=== PATIENT | female | born 1985 | race Caucasian/White ===

== ENCOUNTER 2023-03-24 08:56 | Day surgery (SDC) | payer OTHER, SELFPAY ==
[2023-03-22 11:00] VITALS: BP 140/84; PULSE 84; RESP 16; TEMP 36.4; O2SAT 94
[2023-03-24] VITALS (20 sets, daily range): BP systolic 126–207; BP diastolic 80–137; PULSE 82–105; RESP 8–18; TEMP 36.1–37.1; O2SAT 93–98; BMI 47.9
[2023-03-24] MEDS: LACTATED RINGERS 1000 ML 1,000 ML 100 ML IV (09:00)
[2023-03-24 09:23] LABS: Ur HCG Qualitative* Negative (Negative)
[2023-03-24] MEDS: SODIUM CHLORIDE 0.9 % (FLUSH) 10 ML SYRINGE IVF (10:06)
--- NOTE | 2023-03-24 10:57 | W.ANESCHARGE ---
Anesthesia Charges Start Date/Time Anesthesia Start Date: 03/24/23 Anesthesia Start Time: 10:18 Stop Date/Time Anesthesia Stop Date: 03/24/23 Anesthesia Stop Time: 10:58
--- NOTE | 2023-03-24 11:03 | W.ANESCHARGE ---
Anesthesia Charges Start Date/Time Anesthesia Start Date: 03/24/23 Anesthesia Start Time: 10:18 Stop Date/Time Anesthesia Stop Date: 03/24/23 Anesthesia Stop Time: 10:58
--- NOTE | 2023-03-24 12:14 | W.PM.ENTPROC ---
Procedure Note Date of procedure: 03/24/23 Procedure: Preoperative diagnosis chronic tonsillitis, adenotonsillar hypertrophy, upper airway obstruction, nasal obstruction Postoperative diagnosis same Procedure adenotonsillectomy Under general endotracheal anesthesia the patient was prepped and draped in usual fashion. The McIvor mouth gag was inserted the tongue retracted forward. No submucous cleft was noted on inspection or palpation. The right and left tonsils were removed with a combination of needlepoint cautery, bipolar cautery and suction cautery. Meticulous hemostasis was achieved. The adenoid pad was visualized with a laryngeal mirror and was moderately enlarged. It was and removed with suction cautery. The patient was extubated in the operating room taken recovery in satisfactory condition. Blood loss was less than 10 mL. Surgeon: Chris Joe MD
[2023-03-24] MEDS: ACETAMINOPHEN 160 MG/5 ML CUP 320 MG PO ×2 (12:36→16:55)
[2023-03-24] MEDS: LACTATED RINGERS 1000 ML 1,000 ML 35 ML IV (12:36)
[2023-03-24] MEDS: hydrOXYzine pamoate 25 MG CAPSULE PO (15:22)
[2023-03-24] MEDS: OXYCODONE 1 MG/ML ORAL SOLN 5 MG PO (16:06)
--- NOTE | 2023-03-24 17:21 | PC.NURSE ---
End of Shift: Pt arrived to Med Surg unit post tonsillectomy. Remained AO, alert and cooperative throughout shift. Reported pain between 5-8/10 in throat and headache. Pain controlled with PO tylenol and oxycodone. Pt tolerating PO fluids, popsicles and ice chips well, dinner ordered, IV fluids stopped. Pt up independently, steady gait. Voids independently with hx of straight cathing self. No BM this shift, reports last BM this AM. Father at bedside upon arrival, left shortly after. Plan to d/c tomorrow.
[2023-03-24] MEDS: OXYCODONE 5 MG TABLET PO (20:28)
[2023-03-24] MEDS: IBUPROFEN 100 MG/5 ML SUSP 400 MG PO (21:16)
[2023-03-24] MEDS: HYDROmorphone 2 MG TABLET PO ×2 (22:01→22:49)
[2023-03-24] MEDS: dexAMETHasone 4 MG/ML VIAL 8 MG IV (22:02)
[2023-03-25] MEDS: HYDROmorphone 2 MG TABLET PO ×2 (02:36→06:58)
[2023-03-25 03:00] VITALS: BP 139/84; PULSE 88; RESP 15; TEMP 36.1; O2SAT 92
--- NOTE | 2023-03-25 05:43 | PC.NURSE ---
End of shift [id number]: patient reporting pain 9/10 after oxycodone use, states the medication makes her sleepy but is not helping with the pain. Call placed to surgeon and new orders received. At 2124 patient continues to report pain 8.5-9/10 to throat, call placed to surgeon and new order for dilaudid. Patient to utilize diluadid to get pain controlled and then will need to be switched to oxycodone for discharge. Ice pack applied to throat. Tolerating CPAP well.
[2023-03-25] MEDS: IBUPROFEN 100 MG/5 ML SUSP 400 MG PO ×2 (06:58→13:35)
[2023-03-25 09:50] VITALS: BP 130/78; PULSE 94; RESP 16; TEMP 37; O2SAT 95
[2023-03-25] MEDS: OXYCODONE 5 MG TABLET PO (11:22)
== END 2023-03-25 14:52 | disposition home or self-care (01) ==
LOC: OR 08:57 → MEDSURG 08:59
PROVIDERS: PCP Physician Assistant Medical; Visit Provider Otolaryngology
PROC: (CPT 42821; principal; 2023-03-24 10:15)
DX: J35.01 Chronic tonsillitis (principal); J35.3 Hypertrophy of tonsils with hypertrophy of adenoids
CPT/HCPCS: 42821; 170; 81025; 88304; A9270; J0330; J1100; J2250; J2704; J3010; J7120

== ENCOUNTER 2023-03-29 17:45 | Emergency (ER) | payer OTHER, SELFPAY ==
[2023-03-29] VITALS (7 sets, daily range): BP systolic 129–165; BP diastolic 78–98; PULSE 76–80; RESP 18–20; TEMP 36.9; O2SAT 95–98; BMI 47.9
[2023-03-29] MEDS: 0.9 % SODIUM CHLORIDE 1000 ml 1,000 ML IV (20:19)
[2023-03-29] MEDS: MORPHINE 4 MG/ML INJ IVP (20:19)
[2023-03-29] MEDS: dexAMETHasone 4 MG TABLET 8 MG PO (20:26)
--- NOTE | 2023-03-29 20:44 | ED_ITS ---
HPI - General Adult General Date Seen: 03/29/23 Chief complaint: Dizziness/Vertigo Stated complaint: Dehydrated after tonsil surgery, dizzy Time Seen by Provider: 03/29/23 19:12 Source: patient Mode of arrival: ambulatory Limitations: no limitations History of Present Illness HPI narrative: Patient is a 37-year-old female presenting to the emergency department for throat pain 6 days after she had tonsillectomy with Dr. Sewell. She states they recently switched her from oxycodone to Dilaudid without improvement in the pain control. She tried about today is still having pain. She has not been eating or drinking much due to the pain. She called triage nurse for the ENT office and was recommended to come to the emergency department for fluids for possible dehydration and for pain control. She states previously in her throat felt the past after she had steroids postprocedure. Denies fevers, chills, shortness of breath, chest pain, abdominal pain, headache, vision changes. Related Data Previous Rx's Medication Instructions Recorded fluoxetine 40 mg capsule 40 mg PO QDAY #90 caps 06/17/22 ketoconazole 2 % topical cream 1 applic topical QDAY 6 weeks #60 02/28/23 grams ondansetron 4 mg disintegrating 4 mg PO Q8H #10 tabs 03/24/23 tablet oxycodone 5 mg/5 mL oral solution 5 mg (5 mL) PO Q4-6H PRN pain #200 03/24/23 mL tirzepatide 2.5 mg/0.5 mL 2.5 mg (0.5 mL) subcut QWEEK 4 03/24/23 subcutaneous pen injector weeks #2 mL (Mounjaro) tirzepatide 5 mg/0.5 mL 5 mg (0.5 mL) subcut QWEEK 4 weeks 03/24/23 subcutaneous pen injector #2 mL (Mounjaro) tirzepatide 7.5 mg/0.5 mL 7.5 mg (0.5 mL) subcut QWEEK 4 03/24/23 subcutaneous pen injector weeks #2 mL (Mounjaro) hydromorphone 2 mg tablet 2 mg PO Q4-6H PRN pain #40 tabs 03/28/23 (Dilaudid) dexamethasone 4 mg tablet 8 mg (2 x 4 mg) PO DAILY #6 tabs 03/29/23 Allergies Allergy/AdvReac Type Severity Reaction Status Date / Time clavulanic acid AdvReac Gastrointestinal Verified 03/24/23 09:01 Upset Review of Systems Status of ROS: Reports: 10 or more systems reviewed and unremarkable except as noted in History and below [facility] Medical History Tonsillitis ?J03.90 - Acute tonsillitis, unspecified (ICD-10) Pre-syncope ?R55 - Syncope and collapse (ICD-10) Intermittent palpitations ?R00.2 - Palpitations (ICD-10) Dog bite (01/14/14) ?W54.0XXA - Bitten by dog, initial encounter (ICD-10) Surgical History History of surgery ?Z98.890 - Other specified postprocedural states (ICD-10) History of wisdom tooth extraction ?K08.409 - Partial loss of teeth, unspecified cause, unspecified class (ICD- 10) History of lumbar laminectomy ?Z98.890 - Other specified postprocedural states (ICD-10) Family History Father Atrial fibrillation Other Factor V Leiden mutation Stroke Social History Narrative: does not use illicit drugs nonsmoker rarely consumes alcohol uses oral contraceptives as primary control method What is your current living situation?: I presently have a place to live Problems where you live: no known problems In the past 12 months, utilities in danger of being shut off: no In past 12 months, lack of transportation kept you from medical appts, meetings, work, or getting things needed for daily living: no In the past 12 mos, have been you worried that your food would run out before you had money to buy more?: never true In the past 12 mos, the food you bought just didn't last and you didn't have money to buy more?: never true Highest level of school completed/degree received: some college, no degree Smoking Status: Never smoker Do you use any of these nicotine containing products: None Second hand tobacco smoke exposure: No How often do you have a drink containing alcohol: 2-4 times a month Alcohol type: beer, wine and hard liquor How many standard drinks containing alcohol do you have on a typical day: 1 or 2 How often do you have six or more drinks on one occasion: Less than monthly AUDIT-C Alcohol total score: 3 Non-prescribed substance use: denies use Caffeine: Yes (Daily) How often does anyone, including family, friends and others, physically hurt you : never How often does anyone, including family, friends and others, insult or talk down to you: never How often does anyone, including family, friends and others, threaten you with harm: never How often does anyone, including family, friends and others, scream or curse at you: never Little interest or pleasure in doing things: not at all Feeling down, depressed, or hopeless: not at all service: No Exam Narrative: Exam Narrative: Const: Well-nourished, Well-developed, in mild distress Eyes: PERRL, no conjunctival injection, and symmetrical lids ENMT: Atraumatic external nose and ears. Moist mucous membranes. Uvula midline, erythematous oropharynx, tonsils not seen Neck: Symmetric, trachea midline, No thyromegaly. CVS: RRR, No murmurs or gallops. Peripheral pulses 2+ and equal in all extremities RESP: Unlabored respiratory effort. Clear to auscultation bilaterally. GI: Nontender/Nondistended, No rebound or guarding. MSK:Extremities w/o deformity, Normal Active ROM Skin: Warm, Dry. No rashes or lesions. Neuro: Normal Muscle tone, No focal neurological deficits. Psych: Awake, Alert, & Oriented x3. Appropriate mood and affect. Const: Vital Signs, click to edit/add: Vital Signs - 24 hr 03/29/23 17:52 03/29/23 19:01 03/29/23 19:05 Temperature 98.4 F Pulse Rate [Right Pulse Oximeter] 80 76 Respiratory Rate 18 20 Blood Pressure [Ri ght Upper Arm] 165/98 H 139/84 Pulse Oximetry 97 98 Oxygen Delivery Me thod Room Air Room Air 03/29/23 20:00 Temperature Pulse Rate [Right Pulse Oximeter] Respiratory Rate Blood Pressure [Ri ght Upper Arm] Pulse Oximetry 98 Oxygen Delivery Me thod Course Vital Signs Vital signs: Initial Vital Signs Temperature 98.4 F 03/29/23 17:52 Temperature Source Temporal Artery Scan 03/29/23 17:52 Pulse Rate 80 03/29/23 17:52 Respiratory Rate 18 03/29/23 17:52 Blood Pressure 165/98 H 03/29/23 17:52 Blood Pressure Mean 120 H 03/29/23 17:52 Blood Pressure Position Sitting 03/29/23 17:52 Pulse Oximetry 97 03/29/23 17:52 Oxygen Delivery Method Room Air 03/29/23 17:52 Vital Signs Temperature 98.4 F 03/29/23 17:52 Pulse Rate 80 03/29/23 17:52 Respiratory Rate 18 03/29/23 17:52 Blood Pressure 165/98 H 03/29/23 17:52 Pulse Oximetry 97 03/29/23 17:52 Oxygen Delivery Method Room Air 03/29/23 17:52 Temperature 98.4 F 03/29/23 17:52 Pulse Rate 76 03/29/23 19:05 Respiratory Rate 20 03/29/23 19:05 Blood Pressure 139/84 03/29/23 19:01 Pulse Oximetry 98 03/29/23 20:00 Oxygen Delivery Method Room Air 03/29/23 19:05 Medical Decision Making MDM Narrative Medical decision making narrative: Patient is a 37-year-old female presenting to emergency department for postop pain status post tonsillectomy 6 days prior. She is feeling dehydrated because the pain is not adequately controlled right now she is not eating or drinking much. She states steroids seem to help a lot with the current Dilaudid is not helping. I gave the patient dose of Decadron and a dose of morphine. She states she is feeling much better now. She also got a L of fluids. I spoke to Dr. Sewell and he is agreeable with the plan to give her a few days worth of steroids to help with the swelling and she we can increase her pain medication if I considered it necessary. He states she can follow-up with his office tomorrow if symptoms are still bad. He also states days 6 through 8 post surgery gait is usually the worse for this is consistent with what would be expected. Patient is feeling much better after the medications so she will be discharged. She states she has a lot of Dilaudid pills already and is not needi ng another prescription. I explained to her how to increase the medication as needed for pain and was the most she can take. She is agreeable to this plan will be discharged home. Discharge Plan Discharge Clinical Impression: Post-op pain Patient Disposition: Home, Self-Care Condition: Improved Instructions: Opioid Safety (ED) Additional Instructions: Take 8 mg of Decadron daily for the next 3 days. Use your Dilaudid at 2 mg every 4-6 hours as needed for pain. If that does not help the go up to 4 mg hurt does but should not exceed more than 12 mg in a single day. Follow-up with Dr. Sewell if you continue to have pain. Symptoms usually worse on day 6 through 8 postsurgery Prescriptions: New dexamethasone 4 mg tablet 8 mg PO DAILY Qty: 6 0RF No Action fluoxetine 40 mg capsule 40 mg PO QDAY Qty: 90 3RF ketoconazole 2 % cream 1 applic topical QDAY 42 Days Qty: 60 1RF oxycodone 5 mg/5 mL solution 5 mg PO Q4-6H PRN (Reason: pain) Qty: 200 0RF ondansetron 4 mg tablet,disintegrating 4 mg PO Q8H Qty: 10 1RF Mounjaro 2.5 mg/0.5 mL pen injector 2.5 mg subcut QWEEK 28 Days Qty: 2 0RF Rx Instructions: Inject weekly for weeks 1 to 4 Mounjaro 5 mg/0.5 mL pen injector 5 mg subcut QWEEK 28 Days Qty: 2 0RF Rx Instructions: Inject once weekly for weeks 5 to 8 Mounjaro 7.5 mg/0.5 mL pen injector 7.5 mg subcut QWEEK 28 Days Qty: 2 0RF Rx Instructions: Inject weekly for weeks 9 to 12 hydromorphone [Dilaudid] 2 mg tablet 2 mg PO Q4-6H PRN (Reason: pain) Qty: 40 0RF Follow Up/Referrals: Sheri Valderrama PA-C [Primary Care Provider] - Stand Alone Forms: [facility] Info Instructions
== END 2023-03-29 21:28 | disposition home or self-care (01) ==
PROVIDERS: Emergency Provider Student in an Organized Health Care Education/Training Program; PCP Physician Assistant Medical
DX: G89.18 Other acute postprocedural pain (principal)
CPT/HCPCS: 94761; 96361; 96374; 99283; 99284; A9270; J2270; J7030

== ENCOUNTER 2023-10-30 13:25 | Outpatient (CLI) | payer OTHER, SELFPAY ==
--- OUTSIDE RECORDS SUMMARY | 2023-10-30 13:29 | XMS_ITS | Referral Summary ---
Author Name Unknown Organization [facility] Address [address] [place] [address] Care Team Providers Care Dope Heater Name Role Phone Elsewhere, Pcp Primary Care Provider Unavailabl e Source Comments Patient records contain information from all sites at [facility]. For routine questions regarding patient records, call [phone] during business hours, M-F 8:00 AM - 5:00 PM Central Time. Record requests for emergency care only can be directed to [phone] at any time.[facility] Allergies Active Allergy Reactions Criticality Noted Date Comments Amoxicillin-Pot Clavulanate Nausea And Vomiting,Diarrhea 12/26/2014 Severe diarrhea with augmentin Clavulanic Acid Diarrhea 10/01/2015 Hydrocodone Nausea And Vomiting 10/01/2015 Hydrocodone-Acetaminop hen Nausea And Vomiting 12/26/2014 Medications Medication Sig Dispensed Refills Start Date End Date Status semaglutide (Wegovy) 1.7 mg/0.75 mL pen injector injection Inject under the skin. 06/08/2023 Active FLUoxetine (PROzac) 40 mg capsule Take 40 mg by mouth at bedtime. 09/21/2022 Active azithromycin (ZITHROMAX) 250 mg tablet 500 mg on day 1, followed by 250 mg once daily for 4 days. 6 tablet 07/18/2023 Active etodolac (LODINE) 300 mg capsule Take 1 capsule (300 mg total) by mouth 2 (two) times a day. 10 capsule 07/18/2023 Active Active Problems Problem Noted Date Diagnosed Date Stress 05/11/2018 Neurogenic Bladder 02/23/2018 Chronic Pain Syndrome 02/23/2018 Radiculopathy Lumbar 02/23/2018 Incontinence Fecal 02/23/2018 Body Mass Index 40.0 To 44.9 Adult 10/02/2015 Social History Tobacco Use Types Packs/Day Years Used Date Smoking Tobacco: Never Smokeless Tobacco: Never Tobacco Cessation:Counseling Given: Not Answered Alcohol Use Standard Drinks/Week Comments Yes 0 (1 standard drink = 0.6 oz pur e alcohol) Minimal PHQ-2 Answer Date Recorded PHQ-2 Score 2 12/21/2018 Nutrition Answer Date Recorded Nutrition: EVOO Fat Source Unknown 09/14 Nutrition: Servings of Fruits/Vegetables per Day Not on file 09/14/2020 Dental Answer Date Recorded Dental: Regular Dentist Unknown 09/16/19 21 Sex and Gender Information Value Date Recorded Sex Assigned at Female 02/23/2018 8:06 AM CDT Gender Identity Female 02/23/2018 8:06 AM CDT Sexual Orientation Straight 02/23/2018 8: 06 AM CDT Last Filed Vital Signs Vital Sign Reading Time Taken Comments Blood Pressure 128/88 07/18/2023 9:52 PM [facility] Pulse 76 07/18/2023 9:52 PM [facility] Temperature 36.9 ??C (98.4 ??F) 07/18/2023 9:52 PM MS T Respiratory Rate 16 07/18/2023 9:52 PM [facility] Oxygen Saturation 95% 07/18/2023 9:52 PM [facility] Inhaled Oxygen Concentration - - Weight 131 kg (288 lb 12.8 oz) 07/18/2023 7:24 P M [facility] Height 170.2 cm (5' 7) 07/18/2023 7:24 PM [facility] Body Mass Index 45.23 07/18/2023 7:24 PM [facility] Plan of Treatment Not on file Medical Devices Implanted Type Area Wood Getter Device Identifier Shelf Expiration Date Model / Serial / Lot Hardware E.G. Pins/Screws/Ro ds Hardware e.g. pins/screws/r ods Ankle Care Teams Dope Heater Relationship Specialty Start Date End Date Elsewhere, Pcp PCP - General Internal Medicine 07/18/23
--- OUTSIDE RECORDS SUMMARY | 2023-10-30 13:29 | XMS_ITS | Clinical Summary ---
Author Name Unknown Organization [facility] Address [address] [place] [id number] Care Team Providers Care Diesel Maintenance Electrician Name Role Phone Missy Grossman MD Unavailable [phone] [facility] Primary Care Provider Allergies Active Allergy Reactions Criticality Noted Date Comments Amoxicillin-Pot Clavulanate Diarrhea,Nausea and Vomiting 12/26/2014 Severe diarrhea with augmentin Clavulanic Acid Diarrhea 07/07/2015 Hydrocodone Nausea and Vomiting 10/01/2015 Hydrocodone-Acetaminop hen Nausea and Vomiting 12/26/2014 Medications Medication Sig Dispensed Refills Start Date End Date Status FLUoxetine (PROZAC) 20 MG capsule Take 20 mg by mouth At Bedtime Active Ascorbic Acid (VITAMIN C) 500 MG CHEW Take 1 tablet by mouth daily Active Vitamin D, Cholecalciferol, 25 MCG (1000 UT) TABS Take 1 tablet by mouth daily Active multivitamin, therapeutic (THERA-VIT) TABS tablet Take 1 tablet by mouth daily Active metroNIDAZOLE (FLAGYL) 500 MG tablet 06/17/2021 Active norgestim-eth estrad triphasic (ORTHO TRI-CYCLEN) 0.18/0.215/0.25 MG-35 MCG tablet Take 1 tablet by mouth daily Active carBAMazepine (CARBATROL) 200 MG 12 hr capsuleIndications: Trigeminal neuralgia Take 1 capsule (200 mg) by mouth 2 times daily 14 capsule 1 06/27/2021 Active methylPREDNISolone (MEDROL DOSEPAK) 4 MG tablet therapy pack Follow Package Directions 21 tablet 12/28/2022 Active Active Problems Problem Noted Date Diagnosed Date Acute respiratory failure with hypoxia 0 2019 novel coronavirus disease (COVID-19) 2019 CARDIOVASCULAR SCREENING; LDL GOAL LESS THAN 160 05/09/2010 Papanicolaou smear of cervix with atypical squamous cells of undetermined significance (ASC-US) 02/28/2006 Other abnormal Papanicolaou smear of cervix and cervical HPV(795.09) 02/28/2006 Immunizations Name Administration Dates Next Due LOUPF 7+ (Teniva) 11/03/2003 Family History Medical History Relation Comments C.A.D. Father Heart Disease Father bypass Relation Status Comments Father Social History Tobacco Use Types Packs/Day Years Used Date Smoking Tobacco: Never Smokeless Tobacco: Never Alcohol Use Standard Drinks/Week Comments Yes 0 (1 standard drink = 0.6 oz pur e alcohol) occasionally Adolescent Education Answer Date Record ed Getting School Help Needed Not on file 04/02 Sex and Gender Information Value Date Recorded Sex Assigned at Not on file Gender Identity Not on file Sexual Orientation Not on file Last Filed Vital Signs Vital Sign Reading Time Taken Comments Blood Pressure 135/72 12/28/2022 3:24 PM CDT Pulse 80 12/28/2022 3:24 PM CDT Temperature 37.1 ??C (98.8 ??F) 12/28/2022 1 1:27 AM CDT Respiratory Rate 18 12/28/2022 1:23 PM CDT Oxygen Saturation 100% 12/28/2022 3:24 PM CDT Inhaled Oxygen Concentration - - Weight 134.7 kg (296 lb 15.4 oz) 09/18/2022 1:53 PM CDT Height 170.2 cm (5' 7) 05/26/2020 9:40 PM TECHNOLOGY COORDINATOR Body Mass Index 46.51 05/26/2020 9:40 PM TECHNOLOGY COORDINATOR Plan of Treatment Health Maintenance Due Date Last Done Comments ADVANCE CARE PLANNING 1985 ANNUAL REVIEW OF HM ORDERS 1985 HIV SCREENING 2000 HEPATITIS B IMMUNIZATION (4 of 4 - 4-dose series) 05/22/2001 03/27/2001, 03/27/2001, 01/26/2001, Additional history exists HEPATITIS C SCREENING 10/28/2003 YEARLY PREVENTIVE VISIT 02/21/2006 02/21/2005 COVID-19 Vaccine ( season) 2023 12/21/2021 INFLUENZA VACCINE (#1) 2023 , 05/20/2019, 05/20/2019, Additional history exists PHQ-2 (once per calendar year) 2023 DTAP/TDAP/TD IMMUNIZATION (4 - Td or Tdap) 12/24/2023 12/23/2013, 11/03/2003, 11/03/2003, Additional history exists PAP 05/28/2024 05/28/2021, 05/10, 03/18/2019, Additional history exists GLUCOSE 12/28/2025 12/28/2022, 09/07, 05/30/2020, Additional history exists HPV IMMUNIZATION Aged Out No longer e ligible based on patient's age to complete this topic IPV IMMUNIZATION Aged Out No longer e ligible based on patient's age to complete this topic MENINGITIS IMMUNIZATION Aged Out No l onger eligible based on patient's age to complete this topic Pneumococcal Vaccine: Pediatrics (0 to 5 Years) and At-Risk Patients (6 to 64 Years) Aged Out No longer eligible based on patient's age to complete this topic RSV MONOCLONAL ANTIBODY Aged Out No l onger eligible based on patient's age to complete this topic Procedures Procedure Name Priority Date/Time Associated Diagnosis Comments BASIC METABOLIC PANEL STAT 12/28/2022 1:31 PM CDT HCL PAP SMEAR Routine 12/02/1998 1:18 PM CDT Gynecologic Examination from Last 3 Months or Most Recently Relevant to Health Maintenance Results * (ABNORMAL) Basic metabolic panel (12/28/2022 1:31 PM CDT) Sodium 145 136 - 145 mmol/L 12/28/2022 2:34 PM CDT [facility] Potassium 4.8 3.4 - 5.3 mmol/L 12/28/2022 2:34 PM CDT [facility] Chloride 93(L) 98 - 107 mmol/L 12/28/2022 2:34 PM CDT [facility] Carbon Dioxide (CO2) 23 22 - 29 mmol/L 12/28/2022 2:34 PM CDT [facility] Anion Gap 29(H) 7 - 15 mmol/L 12/28/2022 2:34 PM CDT [facility] Urea Nitrogen 11.9 6.0 - 20.0 mg/dL 12/28/2022 2:34 PM CDT [facility] Creatinine 0.65 0.51 - 0.95 mg/dL 12/28/2022 2:34 PM CDT [facility] Calcium 8.9 8.6 - 10.0 mg/dL 12/28/2022 2:34 PM CDT [facility] Glucose 102(H) 70 - 99 mg/dL 12/28/2022 2:34 PM CDT [facility] GFR Estimate >90 >60 mL/min/1.7 3m2 12/28/2022 2:34 PM CDT [facility] Blood BLOOD SPECIMEN / Unknown Venipuncture / Unknown 12/28/2022 1:31 PM CDT 12/28/2022 1:38 PM CDT Narrative [facility] - 12/28/2022 2:34 PM CDT Rerun acceptable Vinay Ferrari MD LAB - BLOOD ORD ERABLES LABORATORY [facility] Acute [facility] Lab [address] Lab (1st floor, no room number) [place] [address], [facility] [phone] * PAP SMEAR (12/02/1998 1:18 PM CDT) Unlabelled DNR [facility] Biopsy Sent DNR [facility] Source VAG,CERV,E NDOCERV [facility] LMP POST [facility] PARA 3 [facility] 2 [facility] Clinical History DNR [facility] Therapy DNR [facility] Last Pap Diagnosis WITHIN NORMAL LIMITS [facility] PAP Date [id number] [facility] Specimen # DNR [facility] Tissue DNR [facility] Tissue Date DNR [facility] Statement of Adequacy [facility] Comment: SATISFACTORY FOR INTERPRETATION POST MENOPAUSAL PATIENT. ??NO ENDOCERVICAL CELLS SEEN. General Categorization DNR [facility] Descriptive Diagnosis [facility] Comment: WITHIN NORMAL LIMITS ATROPHIC CELL PATTERN Recommendations DNR [facility] DNR 114,,,,,, [facility] DNR DNR [facility] DNR DNR [facility] DNR DNR [facility] . [facility] Comment: ?PAP SMEARS ARE SUBJECT TO BOTH FALSE NEGATIVE AND FALSE ? POSITIVE RESULTS EVIDENCED BY DATA PUBLISHED IN THE ? MEDICAL LITERATURE. ??YOUR PATIENT'S RESULT SHOULD BE ? INTERPRETED IN THIS CONTEXT, TOGETHER WITH THE PATIENT'S ? HISTORY AND CLINICAL FINDINGS. TESTING LOCATION ? THIS TEST WAS PERFORMED AT [facility] ? [address]. [address] ? PHONE NUMBERS FOR CYTOLOGY INQUIRES, INCLUDING SLIDE REQUESTS ? EXT. [id number] ?? EXT. [id number] 11/30/1998 Ayala Kapoor MD LABORATORY [facility] from Last 3 Months or Most Recently Relevant to Health Maintenance Advance Directives For more information, please contact: [phone] * Full Code (Latest Code Status on File) Date Activated Date Inactivated Comments 06/01/2020 11:26 AM 09/18/2022 1:42 PM Question Answer Comments Code status determined by: Discussion with patie nt/ legal decision maker * Full Code Date Activated Date Inactivated Comments 05/26/2020 9:40 PM 06/01/2020 11:26 AM All basic and advanced life-sustaining interventions are performed as appropriate Question Answer Comments Code status determined by: Discussion with patie nt/ legal decision maker Care Teams Diesel Maintenance Electrician Relationship Specialty Start Date End Date [facility], [address] [address] PCP - General 01/10/14 Missy Grossman MD [address] [place], [place] [address], [place] [address] Referring Physician Neurological Surgery 11/18/13
--- OUTSIDE RECORDS SUMMARY | 2023-10-30 13:29 | XMS_ITS | Clinical Summary ---
Author Name Unknown Organization [facility] [facility] Address [place], [place] [address] Care Team Providers Care Cooler Conveyor Loader Name Role Phone Sheri Valderrama PA-C Primary Care Provider [phone] Allergies Active Allergy Reactions Criticality Noted Date Comments Amoxicillin-Pot Clavulanate Diarrhea,Nausea And Vomiting 12/26/2014 Severe diarrhea with augmentin Clavulanic Acid Diarrhea 07/07/2015 Hydrocodone-Acetaminop hen Nausea And Vomiting 12/26/2014 Medications Medication Sig Dispensed Refills Start Date End Date Status FLUoxetine (PROZAC) 40 mg capsule Take 40 mg by mouth once daily. 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 Tethered cord syndrome 01/01/2015 Social History Tobacco Use Types Packs/Day Years Used Date Smoking Tobacco: Never Alcohol Use Standard Drinks/Week Comments Yes 0 (1 standard drink = 0.6 oz pur e alcohol) rare Social Connections Answer Date Recorded Frequency of Communication with Friends and Fami ly Not on file 07/10/2021 Financial Resource Strain Answer Date R ecorded Difficulty of Paying Living Expenses Not on file 07/10/2021 Difficulty of Paying Living Expenses Not on file 07/10/2021 Sex and Gender Information Value Date Recorded Sex Assigned at Not on file Gender Identity Not on file Sexual Orientation Not on file Obstetrics History Last Filed Vital Signs Vital Sign Reading Time Taken Comments Blood Pressure 144/108 09/27/2022 6:52 PM CDT Pulse 96 09/27/2022 6:52 PM CDT Temperature 36.9 ??C (98.4 ??F) 09/27/2022 6:52 PM CD T Respiratory Rate 18 09/27/2022 6:52 PM CDT Oxygen Saturation 97% 09/27/2022 6:52 PM CDT Inhaled Oxygen Concentration - - Weight 131.5 kg (290 lb) 09/27/2022 6:52 PM CDT Height 170.2 cm (5' 7) 09/27/2022 6:52 PM CDT Body Mass Index 45.42 09/27/2022 6:52 PM CDT Plan of Treatment Health Maintenance Due Date Last Done Comments Tdap 1996 HIV for age 15-65 2000 BMI (ht and wt on same day) for age 18+ 10/28/2003 Hepatitis C screening for age 18-79 10/28/2003 Tetanus booster 2005 Depression screening for age 12+ 09/27/2016 09/28/2015 COVID-19 vaccine series ( season) 2023 12/21/2021 Influenza for age 9-49 03/10/2024 Pap test for age 21-65 05/28/2024 , 05/28/2021, 03/18/2019, Additional history exists Pneumococcal series for age 6-64 Aged Out No longer eligible based on patient's age to complete this topic Procedures Procedure Name Priority Date/Time Associated Diagnosis Comments HPV THIN PREP Routine 05/28/2021 2:00 PM LATHING SUPERVISOR from Last 3 Months or Most Recently Relevant to Health Maintenance Results * HPV HIGH RISK (05/28/2021 2:00 PM LATHING SUPERVISOR) TYPE 16 Negative Negative 06/02/2021 2:12 PM LATHING SUPERVISOR [facility] TYPE 18 Negative Negative 06/02/2021 2:12 PM LATHING SUPERVISOR [facility] TR[facility] OTHER HIGH RISK TYPES Negative Negative 06/02/2021 2:12 PM LATHING SUPERVISOR [facility] TR[facility] Other (Cervical/Vagina l) 05/28/2021 2:00 PM LATHING SUPERVISOR 06/01/2021 8:27 AM LATHING SUPERVISOR Narrative [facility] - 06/02/2021 2:12 PM LATHING SUPERVISOR HPV types 16, 18, 31, 33, 35, 39, 45, 51, 52, 56, 58, 59, 66 and 68 DNA were undetectable or below the pre-set threshold. Methodology: [employer] 4800 HPV Test October Sharri BROWN MICROBI[employer] [facility] [address] [place] [address], from Last 3 Months or Most Recently Relevant to Health Maintenance Advance Directives * Full Code (Latest Code Status on File) Date Activated Date Inactivated Comments 07/08/2015 7:34 PM 07/09/2015 5:18 PM * Full Code Date Activated Date Inactivated Comments 07/08/2015 11:52 AM 07/08/2015 7:34 PM * Full Code Date Activated Date Inactivated Comments 12/28/2014 10:00 AM 01/01/2015 12:43 PM * Full Code Date Activated Date Inactivated Comments 12/26/2014 6:51 AM 12/26/2014 3:11 PM Care Teams Cooler Conveyor Loader Relationship Specialty Start Date End Date Sheri Valderrama PA-C [address] [place] [address] PCP - General Physician Restaurant Management Internship 06/30/20
--- OUTSIDE RECORDS SUMMARY | 2023-10-30 13:29 | XMS_ITS | Referral Summary ---
Author Name Unknown Organization [facility] Address [address] [place] [address] Care Team Providers Care Scallop Cutter Machine Name Role Phone Missy Grossman MD Unavailable [facility], [facility] Primary Care Provider Allergies Active Allergy Reactions [...] Dates Next Due LOUPF 7+ (Teniva) 11/03/2003 Social History Tobacco Use Types Packs/Day Years [...] 170.2 cm (5' 7) 05/26/2020 9:40 PM RETORT ENGINEER Body Mass Index 46.51 05/26/2020 9:40 PM RETORT ENGINEER Plan of Treatment Not on file Procedures Procedure Name Priority Date/Time Associated Diagnosis [...] MD LAB - BLOOD ORD ERABLES LABORATORY [facility] [address] Lab (1st floor, no room number) [place] [address], [facility] [phone] * PAP SMEAR (12/02/1998 1:18 PM CDT) Unlabelled R [facility] Biopsy Sent [facility] Source VAG,CERV,E NDOCERV [facility] LMP POST [facility] PARA 3 [facility] 2 [facility] Clinical History DNR [facility] Last Pap Diagnosis WITHIN NORMAL LIMITS [facility] PAP Date [id number] [facility] Specimen # DNR [facility] Tissue DNR [facility] Tissue [facility] Statement of Adequacy [facility] Comment: SATISFACTORY FOR INTERPRETATION POST MENOPAUSAL PATIENT. ??NO ENDOCERVICAL CELLS SEEN. General Categorization [facility] Descriptive Diagnosis [facility] Comment: WITHIN NORMAL LIMITS ATROPHIC CELL PATTERN Recommendations DNR QUES T PENCIL BLUFF DNR 114,,,,,, [facility] DNR DNR [facility] DNR DNR [facility] DNR DNR [facility] . [facility] Comment: ?PAP SMEARS ARE SUBJECT TO BOTH FALSE NEGATIVE AND FALSE ? POSITIVE RESULTS EVIDENCED BY DATA PUBLISHED IN THE ? MEDICAL LITERATURE. ??YOUR PATIENT'S RESULT SHOULD BE ? INTERPRETED IN THIS CONTEXT, TOGETHER WITH THE PATIENT'S ? HISTORY AND CLINICAL FINDINGS. TESTING LOCATION ? [facility] ? [address]. [address] ? PHONE NUMBERS FOR CYTOLOGY INQUIRES, INCLUDING SLIDE REQUESTS ? EXT. [id number] ?? EXT. [id number] 11/30/1998 Ayala Kapoor MD LABORATORY Performing Organization Address City/State/[facility] Co de Phone Number [facility] from Last 3 Months or Most Recently Relevant to Health Maintenance Advance Directives For more information, please contact: [phone] * Full Code (Latest Code Status on File) Date Activated Date Inactivated Comments 06/01/2020 11:26 AM 09/18/2022 1:42 PM Question Answer Comments Code status determined by: Discussion with elijah nt/ legal decision maker * Full Code Date Activated Date Inactivated Comments 05/26/2020 9:40 PM 06/01/2020 11:26 AM All basic and advanced life-sustaining interventions are performed as appropriate Question Answer Comments Code status determined by: Discussion with elijah nt/ legal decision maker Care Teams Scallop Cutter Machine Relationship Specialty Start Date End Date [facility], [address] [address] PCP - General 01/10/14 Missy Grossman MD [address] [facility] [id number] [address] Referring Physician Neurological Surgery 11/18/13
--- OUTSIDE RECORDS SUMMARY | 2023-10-30 13:29 | XMS_ITS | Clinical Summary ---
Author Name Unknown Organization [facility] Address [address] [place] [address] Care Team Providers Care Timber Packer Name Role Phone Elsewhere, Pcp Primary Care Provider Unavailabl e Source Comments Patient records contain information from all sites at [facility]. For routine questions regarding patient records, call [phone] during business hours, M-F 8:00 AM - 5:00 PM Central Time. Record requests for emergency care only can be directed to [phone] at any time.[facility] Allergies Active Allergy Reactions Criticality Noted Date [...] Comments Blood Pressure 128/88 07/18/2023 9:52 PM [facility] Pulse 76 07/18/2023 9:52 PM [facility] Temperature 36.9 ??C (98.4 ??F) 07/18/2023 9:52 PM MS T Respiratory Rate 16 07/18/2023 9:52 PM [facility] Oxygen Saturation 95% 07/18/2023 9:52 PM [facility] Inhaled Oxygen Concentration - - Weight 131 kg (288 lb 12.8 oz) 07/18/2023 7:24 P M [facility] Height 170.2 cm (5' 7) 07/18/2023 7:24 PM [facility] Body Mass Index 45.23 07/18/2023 7:24 PM [facility] Plan of Treatment Health Maintenance Due Date Last Done Comments HIV Screening 1985 Hepatitis C Screening 1985 Lipid (Cholesterol) Screening 1985 Hepatitis B Vaccines (3 of 3 - 3-dose series) 05/22/2001 03/27/2001, 01/26/2001 Cervical Cancer Screening 12/08/20172014 (Performed elsewhere) COVID-19 Vaccine ( season) 2023 12/21/2021 Influenza Vaccine (#1) 2023 , 05/20/2019, 08/29/2016 Depression Screening (Annual PHQ-2) 07/10/2023 DTaP,Tdap,and Td Vaccines (4 - Td or Tdap) 12/24/2023 12/23/2013, 11/03/2003, 11/03/2003, Additional history exists HPV Vaccines Aged Out No longer eligi ble based on patient's age to complete this topic Pneumococcal vaccine (0-64 years) Aged Out No longer eligible based on patient's age to complete this topic Medical Devices Implanted Type Area Injection Molding Machine Setter Device Identifier Shelf Expiration Date Model / Serial / Lot Hardware E.G. Pins/Screws/Ro ds Hardware e.g. pins/screws/r ods Ankle Care Teams Timber Packer Relationship Specialty Start Date End Date Elsewhere, Pcp PCP - General Internal Medicine 07/18/23
--- OUTSIDE RECORDS SUMMARY | 2023-10-30 13:29 | XMS_ITS ---
Author Name Unknown Organization [facility] Address [address] [place] [address] Care Team Providers Care Business Database Analyst Name Role Phone Unavailable Unavailable Unavailable Surgery Details Not on file Complications Check Surgery Details section. Procedure Estimated Blood Loss Check Surgery Details section. Procedure Findings Check Surgery Details section. Procedure Specimens Taken Check Surgery Details section.
--- OUTSIDE RECORDS SUMMARY | 2023-10-30 13:29 | XMS_ITS | Encounter Summary ---
Author Name Unknown Organization [facility] Address [address] [place] [address] Care Team Providers Care Tandem Mill Sticker Name Role Phone Elsewhere, Pcp Primary Care Provider Unavailabl e Reason for Referral * Outpatient (Routine) - Closed Specialty Diagnoses / Procedures Referred By Contac t Referred To Contact Spine Diagnoses Herniated Disc Lumbar Arnold Jacome M.D. [address] [place] [address] [facility] Referral ID Status Reason Start Date Expiration Date Visits Re quested Visits Authorized [id number] Closed 01/29/2018 01/29/2019 2 1 Encounter Details Date Type Department Care Team (Late st Contact Info) Description 01/29/2018 [facility] [address] [place] [address] Arnold Jacome M.D. [address] [place] [address] Herniated Disc Lumbar (Primary Dx) Social History Tobacco Use Types Packs/Day Years Used Date Smoking Tobacco: Never Sex and Gender Information Value Date Recorded Sex Assigned at Female 02/23/2018 8:06 AM CDT Gender Identity Female 02/23/2018 8:06 AM CDT Sexual Orientation Straight 02/23/2018 8: 06 AM CDT documented as of this encounter Plan of Treatment Scheduled Referrals Name Type Priority Associated Diagnoses Orde r Schedule Spine Center Referral Outpatient Referral Routine Herniated Disc Lumbar Expected: 01/29/2018 (Approximate), Expires: 01/29/2021 documented as of this encounter Visit Diagnoses Diagnosis Herniated Disc Lumbar- Primary documented in this encounter Care Teams Tandem Mill Sticker Relationship Specialty Start Date End Date Elsewhere, Pcp PCP - General Internal Medicine 07/18/23 documented as of this encounter
--- OUTSIDE RECORDS SUMMARY | 2023-10-30 13:30 | XMS_ITS | Encounter Summary ---
Author Name Unknown Organization [facility] Address [address] [place] [address] Care Team Providers Care Ripsaw Matcher Name Role Phone Missy Grossman MD Unavailable [phone] [facility] Primary Care Provider Derek Whiting RN Unavailable Encounter Details Date Type Department Care Team (Late st Contact Info) Description 02/06/2014 [facility] Medical Advice [facility] 4TH FLOOR, [phone] [facility] [address] [place] [address] Tracy Corrales PA-C [address] [place], [place] [id number] Social History Tobacco Use Types Packs/Day Years Used Date Smoking Tobacco: Never Smokeless Tobacco: Never Alcohol Use Standard Drinks/Week Comments Yes 0 (1 standard drink = 0.6 oz pur e alcohol) occasionally Sex and Gender Information Value Date Recorded Sex Assigned at Not on file Gender Identity Not on file Sexual Orientation Not on file documented as of this encounter Plan of Treatment Not on file documented as of this encounter Visit Diagnoses Not on filedocumented in this encounter Additional Health Concerns Infection Onset Date Last Indicated Resolved Time COVID-19 Comment:COVID-19 positive at [facility] 05/20/20.05/27/2020 .Elis Lebron 05/27/2020 05/27/2020 06/17/2020 11:39 PM SLAT BASKET MAKER MACHINE documented as of this encounter Care Teams Ripsaw Matcher Relationship Specialty Start Date End Date Clinic, [address] [address] PCP - General 01/10/14 Missy Grossman MD [address] [facility] [id number] [place] [address] Referring Physician Neurological Surgery 11/18/13 Derek Whiting, WILLIAMS Nurse Coordinator Neurological Surgery 01/30/14 4 documented as of this encounter
--- OUTSIDE RECORDS SUMMARY | 2023-10-30 13:30 | XMS_ITS | Clinical Summary ---
Author Name Unknown Organization [facility] Address [address] [place] [address] Care Team Providers Care Casino Surveillance Officer Name Role Phone Unassigned, Provider Primary Care Provider Unava ilable Source Comments You are receiving this document as you are listed as the primary care provider,follow-up provider, or the patient has been referred to you for consultation.This is in compliance with the Medicare andOhio[facility] Hospital[facility] EHR Incentive Program,which states Providers who transition their patient to another setting of careor provider of care or refers their patient to another provider of care shouldprovide summary care record for each transition of care or referral. [facility] Allergies No known active allergies Medications Medication Sig Dispensed Refills Start Date End Date Status FLUoxetine (PROZAC) 40 MG capsule Take 40 mg by mouth daily. Active Immunizations Name Administration Dates Next Due Hib (ActHIB) 01/20/1988 Social History Tobacco Use Types Packs/Day Years Used Date Smoking Tobacco: Never Assessed Sex and Gender Information Value Date Recorded Sex Assigned at Not on file Gender Identity Not on file Sexual Orientation Not on file Plan of Treatment Health Maintenance Due Date Last Done Comments Cervical Cancer Screening Due 1985 Hep C Screening (Preventive Services) 1985 HIV Screening (Preventive Services) 2001 Adult Preventive Visit 10/28/2003 HepB (1) 2004 COVID-19 Vaccine ( - 2022-2 4 season) 2023 Influenza (#1) 2023 05/28/2021, 05/20/2019, 08/29/2016 DTaP/Tdap/Td (4 - Tdap) 12/24/2023 12/24/19 14, 11/03/2003, 10/01/1997 Zoster/Shingles (1 of 2) 10/28/2035 Hib Completed 01/20/1988 HPV Vaccine Aged Out No longer eligi ble based on patient's age to complete this topic HepA Aged Out No longer eligi ble based on patient's age to complete this topic IPV (Polio) Aged Out No longer eligi ble based on patient's age to complete this topic MCV4 Aged Out No longer eligi ble based on patient's age to complete this topic Pneumococcal Aged Out No longer eligi ble based on patient's age to complete this topic Care Teams Casino Surveillance Officer Relationship Specialty Start Date End Date Unassigned, Provider [address] [place] [address] PCP - General 09/16/00
--- OUTSIDE RECORDS SUMMARY | 2023-10-30 13:30 | XMS_ITS | Encounter Summary ---
Author Name Unknown Organization [facility] Address [address] [place] [address] Care Team Providers Care Cementing Bulk Material Operator Name Role Phone Clinic - [facility] Primary Care Provider Missy Grossman MD Unavailable [phone] [facility], [facility] Primary Care Provider Derek Whiting RN Unavailable Encounter Details Date Type Department Care Team (Late st Contact Info) Description 11/06/2013 PRE VISIT Neurosurgery Clinic [facility] 1st Floor, Clinic [address] [place] [address] Vita Almaguer, CHIEF OF PARTY MICROBIAL SPECIALIST Social History Tobacco Use Types Packs/Day Years [...] Indicated Resolved Time COVID-19 Comment:COVID-19 positive at [facility] 05/20/20.05/27/2020 .Elis Lebron 05/27/2020 05/27/2020 06/17/2020 11:39 PM CLAY PREPARATION SUPERVISOR documented as of this encounter Care Teams Cementing Bulk Material Operator Relationship Specialty Start Date End Date Clinic - [facility] [address] [place] [address] PCP - General 10/11/13 01/09/[address] [address] PCP - General 01/10/14 Missy Grossman MD [address] [facility], [place] [address] Referring Physician Neurological Surgery 11/18/13 Derek Whiting, WILLIAMS Nurse Coordinator Neurological Surgery 01/30/14 4 documented as of this encounter
== END 2023-10-30 13:26 | disposition home or self-care (01) ==
PROVIDERS: PCP Physician Assistant Medical; Visit Provider Physician Assistant
DX: N92.6 Irregular menstruation, unspecified (principal)
CPT/HCPCS: 80061; 83498; 84146; 84270; 84402; 84403; 84443

== ENCOUNTER 2024-08-01 09:03 | Outpatient (CLI) | payer OTHER, SELFPAY | END 2024-08-01 09:04 | disposition home or self-care (01) | LOC: NFLDREF 08-11 03:06 | PROVIDERS: PCP Physician Assistant Medical; Referring Provider Physician Assistant Medical; Visit Provider Physician Assistant Medical | DX: R53.83 Other fatigue (principal); Z13.21 Encounter for screening for nutritional disorder; Z13.0 Encounter for screening for diseases of the blood and blood-forming organs and certain disorders involving the immune mechanism; Z13.29 Encounter for screening for other suspected endocrine disorder | CPT/HCPCS: 82306; 82607; 82728; 84443 ==